=== PATIENT | female | born 1990 | race Caucasian/White ===

== ENCOUNTER → 2020-06-10 17:37 | Outpatient (CLI) | payer OTHER, SELFPAY | PROVIDERS: Referring Provider Otolaryngology; Visit Provider Otolaryngology | DX: Z11.59 Encounter for screening for other viral diseases (principal) | CPT/HCPCS: 87635; U0003 ==

== ENCOUNTER 2023-05-23 07:40 | Day surgery (SDC) | payer OTHER, SELFPAY ==
--- NOTE | 2023-05-15 16:39 | PCM.HP.BLA ---
History and Physical Date of Admission: 05/23/23 HPI: The patient is a 33 year old female presenting for pre-operative visit. She is scheduled for laparoscopic bilateral salpinectomy, for sterilization on 05/23/23. Procedure discussed along with risks, benefits and complications. Other alternatives discussed for management. Consent form signed? Yes. ? ? PAST MEDICAL HISTORY PAST MEDICAL HISTORY Diagnosis Date ? Kidney stones ? ? ? PAST SURGICAL HISTORY PAST SURGICAL HISTORY Procedure Laterality Date ? NEXPLANON INSERTION ? ? ? x3-- removed 11/2022 ? SINUS SURGERY PROC UNLISTED ? 2019 ? ? ? CURRENT MEDICATIONS Current Outpatient Medications Medication Sig Dispense Refill ? amoxicillin-clavulanic acid (AUGMENTIN) 875-125 mg per tablet Take 1 tablet by mouth every 12 (twelve) hours. ? ? ? No current facility-administered medications for this visit. ? ? ALLERGIES: Patient has no known allergies. ? PERSONAL HISTORY: SOCIAL HISTORY Social History ? Tobacco Use ? Smoking status: Never ? Smokeless tobacco: Never Substance Use Topics ? Alcohol use: Yes ? ? Comment: occasional ? Drug use: Never ? FAMILY HISTORY: FAMILY HISTORY No family history on file. ? REVIEW OF SYMPTOMS: GENERAL: denies fevers or chills ENDOCRINOLOGY: has not been on steroids Cardiology : denies palpitations or chest pain Respiratory: denies SOB or cough Hematology: denies history of prolonged bleeding or easy bruising or VTE Allergy: Denies history of personal or family history of allergy to anesthesia ? PHYSICAL EXAMINATION: ? VITALS: Blood pressure 124/82, pulse 84, resp. rate 16, height 5' 2 (1.575 m), weight 225 lb (102.1 kg), last menstrual period 04/23/2023. ? GENERAL: The patient is well nourished, well hydrated in no acute distress. , The patient is oriented to time, place, and person. NECK: Supple. No lynphadenopathy, normal thyroid, no thyromegaly. LUNGS: Clear to auscultation bilaterally. no wheezes, rhonchi or rales HEART: Regular rate and rhythm, Normal heart sounds, and No murmurs or gallops GENITALIA: Normal external genitalia, Urethral meatus normal, Bladder nontender, normal vagina and normal vaginal tone, normal cervix, normal uterus, size and consistency, normal adnexa without masses or tenderness, and perineum WNL ? IMPRESSION: sterilization request ? PLAN: The risks/benefits/alternatives and personal involved for the planned bilateral salpingectomy were reviewed with the patient. Her questions were answered to her satisfaction and she desires to proceed. Consent was signed. I reviewed with her postop instructions and expectations. ? ? I have reviewed and updated past medical and surgical history, medications and allergies Assessment & Plan Assessment/Plan (1) Sterilization:
[2023-05-23 08:13] VITALS: BP 136/88; PULSE 97; RESP 16; TEMP 36.8; O2SAT 99; BMI 40.8
[2023-05-23] MEDS: Acetaminophen 500 MG Tablet 1000 MG PO (08:17)
[2023-05-23] MEDS: Ketorolac 30 MG/ML Syringe IV (08:18)
[2023-05-23] MEDS: Lactated Ringers 1,000 ML 15 ML IV (08:18)
[2023-05-23 08:19] LABS: Internal QC Validated? YES +Cl - CLEAR BKGD; Pregnancy, Urine Negative Negative
[2023-05-23 08:52] LABS: Hematocrit 44.5 % (37-47); Mean Corp Hgb Conc 31.5 g/dL (32-36); Mean Platelet Vol. 12.8 fl (6.2-12.0); POSITIVE COUNT YES; RBC Distribution Width CV 13.4 % (11.6-14.6); RBC Distribution Width SD 43.4 fl (35.1-43.9); White Blood Count 7.8 K/mm3 (4.4-11.0)
[2023-05-23 08:54] LABS: Scan Indicated on CBC? Y/N YES- FLAGS NOTED
--- NOTE | 2023-05-23 09:00 | FALS_PTH ---
PATIENT: KATHY PATEL LOC: [facility] – [place], [place] U#:[id number] AGE/SX: / ROOM: RE05/23/[address]: Dr. Alejandra Frye MD : 1990 BED: DIS: 05/23/2023 SPEC #: [id number] RECD: 05/23/23 11:19 STATUS: ALINA ASHLYN #: [id number] MEMO: 05/23/23 09:[address]: Alejandra Frye DEPT: SURGICAL PATHOLOGY RECD BY: Rosa Velasquez ENTERED: 05/23/23 11:34 SP TYPE: FALL TUBES OTHR DR: No Primary Care Phys Tissues: Fallopian tube Procedures: Surgery Specimen Level II Surgery Specimen Level IV HEADER OPERATION: Laparoscopic salpingectomy PRE-OP DIAGNOSIS: Sterilization TISSUE SUBMITTED: Bilateral fallopian tubes MICROSCOPIC DIAGNOSIS Right and left fallopian tubes, bilateral salpingectomies: Complete cross-sections of fallopian tubes. One fallopian tube with benign paratubal cyst. AM:heriberto 05/24/2023 MICROSCOPIC DESCRIPTION Slides are reviewed. GROSS DESCRIPTION Received in fixative is one container labeled with the patient's name and designated bilateral fallopian tubes. The specimen consists of two fallopian tubes with an average length of 6.5 cm and has an average diameter of 0.8 cm. Both fallopian tubes have normal fimbriated ends. No mass lesions are identified. Dry Wall Finisher sections are submitted in two cassettes as follows: 1 - one fallopian tube, 2??the other fallopian tube. / AM:heriberto 05/23/2023 TC:5 CPT: 30110, 75967
[2023-05-23 09:49] LABS: Differential Comment SCANNED
--- NOTE | 2023-05-23 10:01 | DCINST_ITS ---
Discharge Instructions Diet Discharge Diet: No restrictions Activity May resume sexual activity in: 1 week Dressing / Incision Call your doctor if your incision/area has: Sudden Increased Bleeding and Foul Smelling Discharge Call your doctor if you observe: Fever of 101 or Higher Cleanse incision/area with: Soap & Water (Your incisions have skin glue and it can get wet. Leave on until it falls off) Follow Up Care Please Follow Up With: Alejandra Frye MD When: As needed. Call [phone] or send a [employer] message for questions. Test Results: Test results from this visit will be discussed in further detail at your follow- up appointment, if applicable. Discharge Plan Admission Attending Provider: Alejandra Frye Primary Care Provider: Care Physician,Helen Primary Discharge Orders/Prescriptions Prescriptions: No Action Probiotic Acidophilus 1.5 mg (250 million cell) capsule 500 mmu cells PO DAILY Referrals / Follow Up: Care Physician,No Primary [Primary Care Provider] - Disposition Disposition (needs filled in before D/C Order can be placed): Home, Self Care
--- NOTE | 2023-05-23 10:02 | PCM.OPRPT ---
Problems Associated Problem List Diagnoses (1) Sterilization: Report of Operation Date of Procedure: 05/23/23 Pre-Operative Diagnosis: sterilization request Post-Operative Diagnosis: same Surgery/Procedure Performed:: Laparoscopic bilateral salpingectomy Description of Surgical Findings:: normal uterus, tubes and ovaries, normal peritoneal cavity Surgeon: Alejandra Frye hotel recreational facilities manager: None Type of Anesthesia: General Anesthesiologist: Wilbert Brewer Special Medications: none Specimen's removed: bilateral fallopian tubes Drains: none Estimated Blood Loss (mL): 10 Fluids Replaced: 600 Description of Procedure: The patient was taken to the operating room where she was prepped and draped in the dorsolithotomy position. A weighted speculum was placed in the vagina and the anterior lip of the cervix was grasped with a tenaculum. The Louise uterine manipulator was placed and the remainder of the instruments were removed from the vagina. Attention was turned to the abdomen. All port sites were infiltrated with 0.5% Marcaine before skin incisions were made. A 5 mm intraumbilical incision was made. The anterior abdominal wall was tented up with 2 towel clamps while a 5 mm blade less trocar and sleeve were directly inserted. Intraperitoneal placement was confirmed with the laparoscope. The pneumoperitoneum was created and the underlying abdominal contents were intact. The patient was placed in Trendelenburg. Right and left lower quadrant ports were placed under direct visualization lateral to the inferior epigastric vessels. The bowel was swept away and the above findings were noted. The Enseal device was used to clamp seal and transect the antimesenteric portions of the right tube to the cornual insertion of the uterus. The tube was amputated from the uterus and the pedicles were all confirmed to be hemostatic. The same procedure was performed on the contralateral side. The specimens were brought out through a 5 mm port. The pedicles were again examined and found to be hemostatic. The lateral ports were removed under direct visualization and no active bleeding was noted. The pneumoperitoneum was released. The skin incisions were closed with Monocryl suture in a subcuticular fashion and skin glue. The vaginal instruments were removed and the vaginal sweep was completed by me. The entire procedure was performed by me. All sponge and needle counts were correct and the patient was taken to the recovery room in stable condition. Grafts/Implants Used: none Procedure Start Time: 10:18 Procedure Stop Time: 10:35 Complications none Admit VTE Documentation VTE Present on Admission: No VTE Mechan Device Prophylaxis: SCD's VTE Pharm Prophylaxis ordered?: No Reason prophylaxis not ordered:: Procedure Not Indicated
[2023-05-23] MEDS: Bupivacaine Mpf 0.5% 30 ML VIAL (10:15)
[2023-05-23 10:47] VITALS: BP 126/84; BP 136/88; PULSE 101; RESP 14; TEMP 36.4; O2SAT 90
[2023-05-23 11:00] VITALS: BP 127/75; BP 136/88; PULSE 80; RESP 16; O2SAT 97
[2023-05-23 11:15] VITALS: BP 126/74; BP 136/88; PULSE 71; RESP 18; O2SAT 97
[2023-05-23 11:21] VITALS: BP 129/77; BP 136/88; PULSE 73; RESP 18; TEMP 36.4; O2SAT 99
[2023-05-23 11:33] VITALS: BP 136/88
== END 2023-05-23 11:48 | disposition home or self-care (01) ==
LOC: SDC 07:45 → AC 07:45
PROVIDERS: Referring Provider Obstetrics & Gynecology; Visit Provider Obstetrics & Gynecology
PROC: (CPT 58661; principal; 2023-05-23 08:45)
DX: Z30.2 Encounter for sterilization (principal); N83.8 Other noninflammatory disorders of ovary, fallopian tube and broad ligament
CPT/HCPCS: 58661; 00840; 81025; 85027; 88302; 88305; J7120; C1760; J2405

== ENCOUNTER → 2025-04-27 | Outpatient (CLI) | payer OTHER, SELFPAY ==
[2025-04-27 10:37] LABS: Hematocrit 42.3 % (37-47); Hemoglobin 13.4 g/dL (12.0-15.0); Mean Corp Hgb Conc 31.7 g/dL (32-36); Mean Corpuscular Volume 87.6 fL (81-99); Mean Platelet Vol. 11.2 fl (6.2-12.0); POSITIVE COUNT YES; RBC Distribution Width CV 13.5 % (11.6-14.6); RBC Distribution Width SD 43.5 fl (35.1-43.9); Red Blood Count 4.83 M/mm3 (4.2-5.4); White Blood Count 7.7 K/mm3 (4.4-11.0)
[2025-04-27 11:42] LABS: Scan Indicated on CBC? Y/N YES- FLAGS NOTED
[2025-04-27 11:53] LABS: AST(SGOT) 22 U/L (<=31); Alanine Aminotransfer ALT/SGPT 30 U/L (<=34); Albumin, Serum 4.0 g/dL (3.5-5.0); Alkaline Phosphatase 108 U/L (35-104); Anion Gap 10 (5-15); BUN 11 mg/dL (4-19); BUN/Creat Ratio 10.8 RATIO (10-20); Calcium,Total 9.3 mg/dL (7.6-11.0); Carbon Dioxide 23.2 mmol/L (21.0-32.0); Chloride 105 mmol/L (98-108); Cholesterol 170 mg/dL (<=200); Globulin 3.5 g/dL (2.2-4.2); Glucose 97 mg/dL (70-99); Low Density Lipoprotein Calc. 97 mg/dL; Potassium 4.2 mmol/L (3.3-5.1); Triglycerides 75 mg/dL; Very Low Density Lipoprotein 15 mg/dL (5-40); cholesterol:hdl ratio screen 2.92
== END | disposition home or self-care (01) ==
LOC: MTLAB 07:42
PROVIDERS: PCP Family Medicine; Referring Provider Family Medicine; Visit Provider Family Medicine
DX: Z00.00 Encounter for general adult medical examination without abnormal findings (principal); R53.83 Other fatigue; Z13.220 Encounter for screening for lipoid disorders; Z13.1 Encounter for screening for diabetes mellitus
CPT/HCPCS: 36415; 80053; 80061; 84443; 85027